=== PATIENT | male | born 1950 | race Caucasian/White ===

== ENCOUNTER 2016-12-25 07:40 | Emergency (ER) | payer OTHER ==
[2016-12-25 07:57] VITALS: BP 139/91
--- NOTE | 2016-12-25 08:48 | UC ---
Upper Extremity HPI - HPI Summary HPI Summary: Rapidly increasing pain in L hand/palm starting 2 days ago. Since first day of pain, pt has been working on grouting tile in bathroom using hands heavily. Pt is R handed. 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 Pain is mainly with palpation of palm over 3rd MC and over dorsal 3rd MCP joint as well as any movement of L 3rd finger. - History of Current Complaint Chief Complaint: UCUpperExtremity Stated Complaint: LT HAND COMPLAINT Time Seen by Provider: 12/25/16 08:21 Hx Obtained From: Patient ?: No Onset/Duration: Gradual Onset, Lasting Days Severity Initially: Mild Severity Currently: Severe Location Of Pain: Radiates To - L elbow Aggravating Factor(s): Movement Alleviating Factor(s): Rest Associated Signs And Symptoms: Positive: Swelling Related History: Dominant Hand Right - Allergies/Home Medications Allergies/Adverse Reactions: Allergies Allergy/AdvReac Type Severity Reaction Status Date / Time No Known Allergies Allergy Verified 12/25/16 07:46 Home Medications: Home Medications Aspirin [Aspirin 81 MG TAB] 1 tab PO DAILY 12/25/16 [History Confirmed 12/25/16] PMH/Surg Hx/FS Hx/Imm Hx Endocrine History Of: Reports: Dyslipidemia Denies: Diabetes, Thyroid Disease Cardiovascular History Of: Reports: Hypertension Denies: Cardiac Disorders Respiratory History Of: Denies: COPD, Asthma GI/ History Of: Denies: Ulcer, Renal Disease Cancer History Of: Denies: Lung Cancer, Colorectal Cancer, Breast Cancer, Prostate Cancer, Cervical Cancer - Surgical History Surgical History: Yes Surgery Procedure, Year, and Place: appendectomy,cervical spine,right shoulder, - Family History Known Family History: Positive: Cardiac Disease, Hypertension, Diabetes, Other - cancer - Social History Lives: With Family Alcohol Use: None Substance Use Type: None Smoking Status (MU): Heavy Every Day Tobacco Smoker Type: Cigarettes Amount Used/How Often: 1 PPD Length of Time of Smoking/Using Tobacco: 54+ YEARS Have You Smoked in the Last Year: Yes Household Exposure Type: Cigarettes Review of Systems Constitutional: Negative Skin: Negative Eyes: Negative ENT: Negative Respiratory: Negative Cardiovascular: Negative Gastrointestinal: Negative Genitourinary: Negative Motor: Negative Neurovascular: Negative Musculoskeletal: Decreased ROM - L 3rd finger Neurological: Negative Psychological: Negative All Other Systems Reviewed And Are Negative: Yes Physical Exam Triage Information Reviewed: Yes Appearance: Well-Appearing, Pain Distress - with any L hand movement Vital Signs: Initial Vital Signs Temp 98.3 F 12/25/16 07:50 Pulse 62 12/25/16 07:50 Resp 16 12/25/16 07:50 BP 139/91 12/25/16 07:50 Pulse Ox 100 12/25/16 07:50 Vital Signs Reviewed: Yes Eye Exam: Normal Eyes: Positive: Conjunctiva Clear ENT Exam: Normal ENT: Positive: Normal ENT inspection, Hearing grossly normal, Pharynx normal, TMs normal Dental Exam: Normal Neck exam: Normal Neck: Positive: Supple, Nontender, No Lymphadenopathy Respiratory Exam: Normal Respiratory: Positive: Chest non-tender, Lungs clear, Normal breath sounds, No respiratory distress, No accessory muscle use Cardiovascular Exam: Normal Cardiovascular: Positive: RRR, No Murmur Musculoskeletal Exam: Other - Marked tenderness over L hand 3rd flexor tendon, no nodule palpated. Minimal redness over distal L 3rd MC on both sides of hand, slight tenderness ove L 3rd MCP joint Musculoskeletal: Positive: ROM Limited @ - L 3rd finger Neurological Exam: Normal Neurological: Positive: Alert Psychological Exam: Normal Skin Exam: Other - redness L hand, described above Upper Extremity Course/Dx - Differential Dx/Diagnosis Provider Diagnoses: L hand 3rd digit tenosynovitis Discharge - Discharge Plan Condition: Stable Disposition: HOME Prescriptions: Naproxen [Naproxen 500 MG TABS] 500 mg PO BID #20 tab Patient Education Materials: Tenosynovitis (ED) Referrals: Maurice Smith MD [Primary Care Provider] - Nelda Kohli MD [Medical Doctor] - 1 Week Additional Instructions: Please arrange for a follow up with any hand specialist within the next week for more in-depth evaluation of your pain and stiffness. If you have increasing redness, streaking up the arm, fever, or markedly worsening pain in the mean time, please go to the emergency department.
--- NOTE | 2016-12-25 09:07 | RAD ---
INDICATION: Left finger injury COMPARISON: None TECHNIQUE: AP, lateral, and oblique views were obtained. FINDINGS: The bony structures, joint spaces, and soft tissues are normal for age. IMPRESSION: NEGATIVE EXAMINATION.
== END 2016-12-25 09:22 | disposition home or self-care (01) ==
LOC: UCEAST 07:40
DX: M65.849 Other synovitis and tenosynovitis, unspecified hand (principal); I10 Essential (primary) hypertension; F17.210 Nicotine dependence, cigarettes, uncomplicated
CPT/HCPCS: 73140; 99212; G0463

== ENCOUNTER 2017-03-20 19:02 | Emergency (ER) | payer OTHER ==
[2017-03-20 19:35] VITALS: BP 130/96
--- NOTE | 2017-03-20 21:48 | RAD ---
Indication: RIGHT second finger pain and swelling. Pain on flexion. No preceding injury. Comparison: No relevant prior exams available on the [facility] PACS for comparison. Technique: 3 views of the RIGHT second finger obtained. REPORT AND IMPRESSION: Fusiform soft tissue swelling. Negative for fracture, malalignment, or appreciable arthropathic change. No conspicuous foreign body evident.
--- NOTE | 2017-03-20 21:50 | RAD ---
Indication: RIGHT shoulder pain while sleeping. Comparison: No relevant prior exams available on the [facility] for comparison. Technique: Internal rotation AP, external rotation Grashey, scapular Y, axillary views RIGHT shoulder Report: Normal acromioclavicular and glenohumeral joint alignment. Moderate AC joint osteophytosis and subchondral sclerosis. Minimal glenohumeral joint osteophytosis. Small focus of calcific tendinopathy likely involving the infraspinatus tendon. Negative for fracture or focal osseous lesion. 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 Calcific tendinopathy likely involving the infraspinatus tendon.
--- NOTE | 2017-03-20 22:14 | UC ---
Shoulder Pain HPI - HPI Summary HPI Summary: RIGHT SHOULDER PAIN ONGOING FOR SEVERAL MONTHS, ONE WEEK OF RIGHT INDEX FINGER SWELING, INJURY UNKNOWN, - History of Current Complaint Chief Complaint: UCUpperExtremity Stated Complaint: FINGER/SHOULDER PAIN Time Seen by Provider: 03/20/17 21:05 Hx Obtained From: Patient Onset/Duration: Gradual Onset, Lasting Weeks, Worse Since - LAST WEEK Timing: Days Severity Initially: Moderate Severity Currently: Moderate Character: Dull, Aching Aggravating Factor(s): Movement, Lifting, Flexion Related History: Dominant Hand Right - Risk Factors Non-Orthopedic Risk Factor: Negative DVT Risk Factors: Negative Septic Arthritis Risk Factor: Negative - Allergies/Home Medications Allergies/Adverse Reactions: Allergies Allergy/AdvReac Type Severity Reaction Status Date / Time No Known Allergies Allergy Verified 03/20/17 19:35 PMH/Surg Hx/FS Hx/Imm Hx Previously Healthy: Yes - Surgical History Surgical History: Yes Surgery Procedure, Year, and Place: appendectomy,cervical spine,right shoulder, - Family History Known Family History: Positive: Cardiac Disease, Hypertension, Diabetes, Other - cancer - Social History Occupation: Retired Lives: With Family Alcohol Use: None Substance Use Type: None Smoking Status (MU): Heavy Every Day Tobacco Smoker Type: Cigarettes Amount Used/How Often: 1 PPD Length of Time of Smoking/Using Tobacco: 54+ YEARS Have You Smoked in the Last Year: Yes Household Exposure Type: Cigarettes Cessation Counseling: Patient Advised to Stop - Immunization History Most Recent Tetanus Shot: Up to date Review of Systems Constitutional: Negative Skin: Negative Eyes: Negative ENT: Negative Respiratory: Negative Cardiovascular: Negative Gastrointestinal: Negative Genitourinary: Negative Motor: Negative Neurovascular: Negative Musculoskeletal: Arthralgia, Myalgia Neurological: Negative Psychological: Negative All Other Systems Reviewed And Are Negative: Yes Physical Exam Triage Information Reviewed: Yes Appearance: Well-Appearing, No Pain Distress, Well-Nourished Vital Signs: Initial Vital Signs Temp 98.1 F 03/20/17 19:25 Pulse 68 03/20/17 19:25 Resp 18 03/20/17 19:25 BP 130/96 03/20/17 19:25 Pulse Ox 100 03/20/17 19:25 Vital Signs Reviewed: Yes Eye Exam: Normal ENT Exam: Normal ENT: Positive: Normal ENT inspection, Hearing grossly normal, TMs normal Dental Exam: Normal Neck exam: Normal Neck: Positive: Supple, Nontender Respiratory Exam: Normal Respiratory: Positive: Chest non-tender, Lungs clear, Normal breath sounds, No respiratory distress, No accessory muscle use Cardiovascular Exam: Normal Cardiovascular: Positive: RRR, No Murmur, Pulses Normal Abdominal Exam: Normal Musculoskeletal: Positive: Strength Limited @ - RIGHT SHOUDLER; RIGHT 2ND FINGER , ROM Limited @ - RIGHT SHOUDLER; RIGHT 2ND FINGER, Edema @ - RIGHT 2ND FINGER Neurological Exam: Normal Neurological: Positive: Alert, Muscle Tone Normal Psychological Exam: Normal Skin Exam: Normal Shoulder Course/Dx - Differential Dx/Diagnosis Differential Diagnosis/HQI/PQRI: AC Separation, Fracture (Closed), Rotator Cuff Injury, Sprain, Strain Provider Diagnoses: RIGHT SECIND FINGER SPRAIN; RIGHT SHOUDLER: CALCIFIC TENDONITIS; AC JOINT OSTEOARTHRITIS, GLENOHUMERAL JOINT OSTEOARTHRITIS Discharge - Discharge Plan Condition: Stable Disposition: HOME Patient Education Materials: Osteoarthritis (ED), Finger Sprain (ED), Calcific Tendinitis (ED), Shoulder Pain (ED) Referrals: Jethro Crowley MD [Medical Doctor] - Maurice Smith MD [Primary Care Provider] -
== END 2017-03-20 22:10 | disposition home or self-care (01) ==
LOC: UCEAST 19:02
DX: S63.610A Unspecified sprain of right index finger, initial encounter (principal); X58.XXXA Exposure to other specified factors, initial encounter; M75.31 Calcific tendinitis of right shoulder; M19.011 Primary osteoarthritis, right shoulder; F17.210 Nicotine dependence, cigarettes, uncomplicated
CPT/HCPCS: 73140; 99212; G0463

== ENCOUNTER 2022-11-08 05:41 | Observation (INO) ==
[2022-11-08] MEDS ORDERED: ceFAZolin 2 GM PREMIX 2 GM/50 ML BAG ONE (05:55)
[2022-11-08] MEDS ORDERED: Lactated Ringers 1000 ml BAG 1,000 ML IV SCH ×2 (06:00→10:00)
[2022-11-08] MEDS ORDERED: Buffered Lidocaine 1% SYRIN 1 ml INTRADERM ONE (06:00)
[2022-11-08] MEDS ORDERED: fentaNYL 250 mcg/5 ml 50 MCG/ML 5 ml VIAL (250 MCG) ONE (06:56)
[2022-11-08] MEDS ORDERED: Propofol 10 MG/ML 20 ML BTL ONE (06:56)
[2022-11-08] MEDS ORDERED: Midazolam 2 mg/2 ml VIAL 1 mg/ml 2 ml VIAL (2 mg) ONE (06:56)
[2022-11-08] MEDS ORDERED: Phenylephrine IV 10 MG/ML 1 ml VIAL ONE (06:56)
[2022-11-08] MEDS ORDERED: Rocuronium 50 mg VIAL 10 mg/ml 5 ml VIAL (50 mg) ONE ×2 (06:56→07:52)
[2022-11-08] MEDS ORDERED: Lidocaine 2% PF 5 ML VIAL ONE (06:56)
[2022-11-08] MEDS ORDERED: Thrombin 5,000 UNITS 1 APPLIC KIT - topical use - TOPICAL ONE (07:02)
[2022-11-08] MEDS ORDERED: ceFAZolin VIAL VIAL ONE (07:02)
[2022-11-08] MEDS ORDERED: Gelfoam Sponge SIZE 100 SPONGE ONE (07:03)
[2022-11-08] MEDS ORDERED: Lidocaine 2% w EPI 1:100,000 20 ML MDV VIAL ONE (07:03)
[2022-11-08] MEDS ORDERED: Chlorhexidine MOUTHWASH 0.12% 15 ML UDC ONE (07:16)
[2022-11-08] MEDS ORDERED: Ondansetron 4 mg VIAL 2 MG/ML 2 ml VIAL IV PRN ×2 (08:56→09:35)
[2022-11-08] MEDS ORDERED: Acetaminophen IV 1 GM/100ML 1,000 MG/100 ML BAG IV ONE ×2 (08:56→09:18)
[2022-11-08] MEDS ORDERED: Naloxone 0.4 mg VIAL 0.4 mg/ml 1 ml VIAL IV PRN ×2 (08:56→10:14)
[2022-11-08] MEDS ORDERED: Sugammadex 500 MG/5 ML 5 ml VIAL IV PUSH ONE (09:18)
[2022-11-08] MEDS ORDERED: Senna TAB 8.6 mg TAB PO PRN (09:43)
[2022-11-08] MEDS ORDERED: Morphine 2 MG/ML SYRINGE IV PRN (09:44)
[2022-11-08] MEDS ORDERED: fentaNYL 100 mcg/2 ml 50 MCG/ML VIAL ONE ×2 (09:48→10:02)
[2022-11-08] MEDS: fentaNYL 100 mcg/2 ml 50 MCG/ML VIAL IV PRN ×5 (09:51→10:04)
[2022-11-08] MEDS ORDERED: fentaNYL 100 mcg/2 ml 50 MCG/ML VIAL IV PRN (10:14)
[2022-11-08] MEDS ORDERED: HYDROmorphone 1 MG/1 ML SYRINGE ONE (10:29)
[2022-11-08] MEDS: HYDROmorphone 1 MG/1 ML SYRINGE IV PRN ×2 (10:31→10:41)
[2022-11-08] MEDS ORDERED: Simvastatin 20 mg TAB (NF) PO ONE (15:00)
[2022-11-09 07:44] VITALS: BP 149/95
[2022-11-09] MEDS ORDERED: DOXYCYCLINE 50 MG PO SCH (09:00)
[2022-11-09] MEDS ORDERED: Simvastatin 20 mg TAB (NF) PO SCH (09:00)
== END 2022-11-09 09:20 | disposition home or self-care (01) ==
LOC: OR 05:41 → SSU 05:41
PROVIDERS: ADMIT Neurological Surgery; ATTEND Neurological Surgery